=== PATIENT | male | born 1975 | race Caucasian/White ===

== ENCOUNTER 2019-10-10 03:22 | Emergency (ER) | payer SELFPAY ==
--- NOTE | ~2019-10-10 | XR_ITS ---
EXAMINATION: XR chest 1V portable DATE: 10/10/2019 03:49 INDICATION: Shortness of breath TECHNIQUE: frontal view of the chest was obtained. COMPARISON: Chest radiograph dated 03/11/2018 FINDINGS: Chronic elevation of the right hemidiaphragm. No focal airspace opacities, pulmonary edema, pleural e ffusion or pneumothorax. The cardiomediastinal silhouette is normal. Visualized bones and soft tissue s are unremarkable. IMPRESSION: 1. Chronic elevation of the right hemidiaphragm. Reviewed, dictated and finalized at location A.
--- NOTE | ~2019-10-10 | CT_ITS ---
EXAMINATION: CT soft tissue neck w con DATE: 10/10/2019 04:58 INDICATION: Sore throat. Difficulty breathing. TECHNIQUE: Computed tomography (CT) of the neck was performed with 75 mL Omnipaque-350 intravenous co ntrast. The dose-length product was 643.39 mGy-cm. Automated exposure control and iterative reconstru ction technique were employed. COMPARISON: No prior studies for comparison. FINDINGS: No evidence for tonsillar or peritonsillar abscess. The salivary glands are unremarkable. N o evidence for epiglottitis. No discrete abscess. No significant abnormality of the neck vasculature. Paranasal sinuses are unremarkable. There is diffuse mild mucosal thickening of the pharynx, suspici ous for pharyngitis. Lung apices are unremarkable. IMPRESSION: 1. Diffuse mild mucosal thickening of the pharynx, suspicious for pharyngitis. Reviewed, dictated and finalized at location A.
[2019-10-10 03:25] VITALS: BP 135/92; PULSE 81; RESP 16; TEMP 36.6; O2SAT 97
--- NOTE | 2019-10-10 03:39 | ED.SOB ---
HPI - SOB/Dyspnea General Chief Complaint: Shortness of Breath/Dyspnea Stated Complaint: feeling like throat closing Time Seen by Provider: 10/10/19 03:23 Source: patient Mode of arrival: EMS Limitations: no limitations History of Present Illness HPI Narrative: This patient is a 44 yo male who presents for evaluation of sensation of throat closing. Patients states just prior to calling EMS he woke up feeling like his throat was closing. He developed burning pain to his throat and he has pain with swallowing. He denies any tongue or lip swelling. He states he is short of breath. He took a dose of xanax prior to EMS arrival for possible panix attack as the cause of his symptoms. He denies fever, chills, cough. Timing: constant Exacerbating factors: nothing Relieving factors: nothing Known history of: other (anxiety) Related Data Home Medications Medication Instructions Recorded Confirmed citalopram mg 10/10/19 lithium carbonate 300 mg PO BID 10/10/19 naltrexone mg 10/10/19 quetiapine 50 mg PO HS 10/10/19 Allergies Allergy/AdvReac Type Severity Reaction Status Date / Time No Known Allergies Allergy Verified 10/10/19 03:59 Review of Systems Review of Systems: All systems reviewed & are unremarkable except as noted in HPI and below Constitutional: Constitutional: Denies chills, Denies fever(s) and Denies weakness ENT: Reports dysphagia, Reports hoarseness, Denies lip swelling and Reports sore throat Cardiovascular: Cardiovascular: Denies chest pain Respiratory: Respiratory: Denies cough and Reports dyspnea Gastrointestinal: Gastrointestinal: Denies abdominal pain, Denies diarrhea, Denies nausea and Denies vomiting Integumentary/Breasts: Skin/Breast: Denies pruritus, Denies erythema and Denies rash Psychiatric: Psychiatric: Reports anxiety [facility] Past Medical History Medical History (Updated 10/10/19 @ 05:34 by Cally Caraballo MD) Anxiety Hypertension Social History Social History (Updated 10/10/19 @ 03:43 by Cally Caraballo MD) Smokeless tobacco user: chewing tobacco Substance use: never Gender identity (if verbalized by the patient): Male Exam Const: General: no acute distress and alert Orientation/consciousness: patient oriented x3 HENMT: Head: normocephalic and atraumatic Ears: hearing grossly normal bilaterally, external ears normal and TM's normal bilaterally General nose exam: Normal external nose present Face and sinus: normal facial exam Mouth: Yes lip normal, Yes tongue normal, Yes moist mucous membranes and No trismus Throat: uvula midline and posterior oropharynx abnormal erythema Eyes: Pupils: Equal, round and reactive pupils present EOM: EOMs intact bilaterally Chest: Chest palpation & inspection: normal inspection of the chest Resp: Effort & Inspection: normal respiratory effort Auscultation: clear to auscultation bilaterally Cardio: Rate: regular rate Rhythm: regular rhythm Heart sounds: no murmurs GI: GI Palp: Yes Soft to palpation, No Tenderness to palpation present (GI), No Guarding due to palpation present (GI) and No Rigid due to palpation Course Reevaluation(s) Reevaluation #1: Patient states he feels better. His throat pain is better and he sensation of throat swelling improving. I discussed wbc 24K and he states he has CLL but he does not think it has been that high. I discussed I will order CT neck Date: 10/10/19 Time: 04:31 Reevaluation #2: Patient is resting comfortably. He has no difficulty breathing. I have discussed plan to treat with antibiotics for pharyngitis. no swelling or edema noted on oropharynx but it is extremely red on exam, no exudates Date: 10/10/19 Time: 05:28 Vital Signs Vital signs: Vital Signs Temperature 97.8 F 10/10/19 03:25 Pulse Rate 81 10/10/19 03:25 Respiratory Rate 16 10/10/19 03:25 Blood Pressure 135/92 H 10/10/19 03:25 Pulse Oximetry 97 10/10/19 03:25 Temperature 97.8 F
[2019-10-10 03:45] LABS: Basophils Absolute Auto 0.2 K/mm3 (0.0-0.1); Basophils Percent Auto 0.8 % (0.2-1.2); Eosinophils Absolute Auto 0.8 K/mm3 (0-0.3); Eosinophils Percent Auto 3.2 % (0-4.4); Hematocrit 49.7 % (42.0-52.0); Hemoglobin 16.4 g/dL (14.0-18.0); Immature Granulocyte Absolute 0.11 K/mm3 (0.00-0.031); Immature Granulocyte Percent A 0.4 % (0-0.5); Lymphocytes Absolute Auto 15.43 K/mm3 (0.9-3.2); Lymphocytes Percent Auto 61.9 % (18.3-44.2); Mean Corpuscular Hemoglobin 29.9 pg (26-34); Mean Corpuscular Volume 90.7 fl (80-100); Mean Platelet Volume 10.4 fl (7.4-10.4); Monocytes Absolute Auto 1.6 K/mm3 (0.1-0.6); Monocytes Percent Auto 6.4 % (2.6-8.5); Neutrophils Absolute Auto 6.8 K/mm3 (1.3-6.7); Neutrophils Percent Auto 27.3 % (45.5-73.1); Platelet Count Result 256 k/mm3 (150-375); Red Blood Count 5.48 M/mm3 (4.6-6.20); Red Cell Distribution Width 13.3 % (11.5-14.5); White Blood Count 24.9 K/mm3 (4.5-10.0)
[2019-10-10] MEDS: methylPREDNISolone SOD SUCC 125 MG VIAL IV PUSH (03:47)
[2019-10-10] MEDS: KETOROLAC 30 MG/ML VIAL (*BKC) IV PUSH (03:47)
[2019-10-10 04:00] VITALS: BP 120/85; PULSE 63; RESP 16; O2SAT 96
[2019-10-10 04:24] LABS: Alanine Aminotransferase 49 U/L (4-50); Albumin Level 4.2 g/dL (3.5-5.1); Alkaline Phosphatase 117 U/L (38-126); Aspartate Amino Transferase 37 U/L (17-59); Bilirubin,Total 0.4 mg/dL (0.2-1.3); Blood Urea Nitrogen 12 mg/dL (9-20); Calcium 8.8 mg/dL (8.4-10.2); Carbon Dioxide 23 mmol/L (22-30); Chloride 107 mmol/L (98-107); Estimated CRCL calculation 119 ml/min; Estimated Glomerular Filt Rate > 60; Glucose 136 mg/dL (75-110); Potassium 3.7 mmol/L (3.4-5.0); Sodium 137 mmol/L (137-145)
[2019-10-10 04:30] VITALS: BP 126/86; PULSE 78; RESP 17; O2SAT 95
[2019-10-10 04:47] LABS: Lithium 0.4 mmol/L (0.6-1.2)
[2019-10-10 04:55] LABS: Monoscreen Negative (Negative); Negative Monotest Control Negative (Negative); Positive Monotest Control Positive (Positive)
[2019-10-10 05:00] VITALS: BP 122/74; PULSE 78; RESP 16; O2SAT 94
[2019-10-10 05:57] VITALS: BP 121/80; PULSE 76; RESP 14; O2SAT 95
[2019-10-10] MEDS: cefTRIAXone 250 MG VIAL IM (05:58)
== END 2019-10-10 06:32 | disposition home or self-care (01) ==
PROVIDERS: Emergency Provider General Practice; PCP Emergency Medicine
DX: J02.9 Acute pharyngitis, unspecified (principal); C91.10 Chronic lymphocytic leukemia of B-cell type not having achieved remission; I10 Essential (primary) hypertension; F41.9 Anxiety disorder, unspecified; F17.220 Nicotine dependence, chewing tobacco, uncomplicated
CPT/HCPCS: 36415; 70491; 71045; 80053; 80178; 85025; 86308; 87081; 87880; 96372; 96374; 96375; 99284; J0696; J1200; J1885; J2930; Q9967

== ENCOUNTER 2021-09-20 07:34 | Outpatient (CLI) | payer BC, SELFPAY ==
--- NOTE | 2021-09-22 11:28 | WPDHOMESLEEP ---
Sleep Study - Home Unattended Date of Study: 09/20/21 Ordering Provider: UNKNOWN,DOCTOR Interpreting Provider: Essie Mina, DO Home Sleep Study Type: Apnea Link Air Height: 1.78 m Weight: 106.594 kg Body Mass Index: 33.7 Neck Circumference (inches): 17.5 [place]: 14 Reason for Sleep Study Unrefreshing sleep and daytime hypersomnnia. Previous diagnosis of JULIANA. Sleep History The patient is a 46-year-old male with anxiety, hypertension, depression, bipolar disorder, PTSD, and hypothyroidism had a sleep study ordered by his primary care. The patient was previously diagnosed with sleep apnea in his early 30s and had a CPAP machine. He stopped after 6 months because he could not tolerate CPAP. He rarely awakens from sleep short of breath. He occasionally awakens at night with heartburn, belching or cough. He occasionally snores loudly enough that others complain. He rarely has trouble sleeping when he has a cold. He occasionally wakes up gasping for air throughout the night. He occasionally has breathing problems at night observed by himself or others. He rarely sweats excessively at night. He rarely has heart palpitations or irregular heartbeats during the night. He frequently falls asleep during the day. He rarely falls asleep while driving. He denies sleep paralysis and cataplexy. He occasionally has trouble at work due to sleepiness. He rarely experiences vivid dreamlike scenes upon awakening or falling asleep. He rarely feels afraid of going to sleep. He rarely has nightmares. He occasionally remembers his dreams. He frequently has thoughts racing through his mind. He rarely feels sad or depressed. He constantly has anxiety. He rarely has muscular tension. He rarely notices parts of his body jerk. He rarely kicks during the night. He rarely has crawling and aching feelings in his legs. He rarely has leg pain during the night. He frequently grinds his teeth during sleep but rarely awakens with morning jaw pain. He is frequently bothered by pain during the day but rarely awakened by pain during the night. He occasionally wakes up feeling stiff in the morning. He frequently wakes up with sore achy muscles. He frequently wakes up with pain in the neck, spine and other joints. He goes to bed at 5:30 a.m. on weekdays and 10:00 p.m. on the weekends. It takes him less than an hour to fall asleep. He wakes up once throughout the night to use the restroom. He is able to fall back asleep within a few minutes. He wakes up at 2:00 p.m. on the weekdays and 9:00 a.m. on the weekends. He typically gets 8-9 hours of sleep per night. He will stay in bed for 10-15 minutes after waking up in the morning. He currently lives with his , stepdaughter and grandchild. the patient does not consume any caffeinated beverages within 2 hours of bedtime. He does engage in physical exercise before bedtime. He will watch television before falling asleep. He will take naps in the afternoon or the evening but they are not refreshing. He will drink 1 caffeinated beverage per day. He denies tobacco, alcohol and recreational drug use. [facility] Past Medical History Medical History Anxiety Bipolar disorder Hypertension Hypothyroidism PTSD (post-traumatic stress disorder) Social History Social History Smokeless tobacco user: chewing tobacco Substance use: never Gender identity (if verbalized by the patient): Male Medications Home Medications Medication Instructions Recorded Confirmed Type amoxicillin 500 mg PO Q12H #20 tablet 10/10/19 Rx citalopram mg 10/10/19 History lithium carbonate 300 mg PO BID 10/10/19 History naltrexone mg 10/10/19 History naproxen 500 mg PO BID PRN #20 tablet 10/10/19 Rx quetiapine 50 mg PO HS 10/10/19 History Sleep Procedure This test was performed using 4 channel monitorin
[2021-09-22 11:40] VITALS: BMI 33.7
== END 2021-09-21 15:14 | disposition home or self-care (01) ==
LOC: ANHCSM 07:36
PROVIDERS: PCP Physician Assistant
DX: G47.33 Obstructive sleep apnea (adult) (pediatric) (principal)
CPT/HCPCS: 95806

== ENCOUNTER 2023-05-11 09:07 | Outpatient (CLI) | payer BC, SELFPAY ==
--- NOTE | 2023-05-13 14:33 | WPDSLEEPSTUD ---
Sleep Study Date of Study: 05/11/2023 Ordering Provider: Yaneth Saldana, DEANGELO Interpreting Physician: Helena Leach MD Sleep Study Type: Polysomnogram Height: 1.78 m Weight: 106.594 kg Body Mass Index: 33.7 Neck Circumference (inches): 19 [place]: 6 Reason for Sleep Study Tired all the time Sleep History Abraham Jimenez is 47-year-old man with a diagnosis of moderate obstructive sleep apnea from testing in his 30s as well as a home sleep test 09/20/2021. He has tried CPAP without success. He returns to have a basic sleep study for [employer] evaluation, hypoglossal nerve stimulator. He has medical co-morbidities including anxiety, hypertension, depression, bipolar disorder, PTSD, and hypothyroidism. He rarely awakens from sleep short of breath. He rarely awakens at night with heartburn, belching or cough. He occasionally snores, rarely loudly enough that others complain. He never has trouble sleeping when he has a cold. He never wakes up gasping for air throughout the night. He rarely has breathing problems at night observed by himself or others. He rarely sweats excessively at night. He never has heart palpitations or irregular heartbeats during the night. He rarely falls asleep during the day. He never falls asleep while driving. He denies feeling paralyzed on waking or falling asleep, denies having muscle weakness with strong emotion, and rarely vivid dream like scenes on falling asleep or waking. He never has trouble at work due to sleepiness. He never feels afraid of going to sleep. He rarely has nightmares. He occasionally remembers his dreams. He frequently has thoughts racing through his mind. He occasionally feels sad or depressed. He frequently has anxiety. He rarely has muscular tension. He rarely notices parts of his body jerk. He rarely kicks during the night. He rarely has crawling and aching feelings in his legs. He rarely has leg pain during the night. He occasionally grinds his teeth during sleep but rarely awakens with morning jaw pain. He is rarely bothered by pain during the day, rarely awakened by pain during the night. He rarely wakes up feeling stiff in the morning. He rarely wakes up with sore achy muscles. He rarely wakes up with pain in the neck, spine and other joints. He goes to bed at 9:30 a.m. on weekdays and 8:00 p.m. on the weekends. He falls asleep within 15-20 minutes, waking 1-2 times at night to go to the bathroom. He is able to return to sleep within a few minutes. He wakes at 7:00 p.m. on weekdays, and 4:00 a.m. on weekends. He typically gets 8-9 hours of sleep per night. He takes naps in the afternoon or the evening, and a short nap lasting 10-15 minutes can be refreshing. Habits: Tobacco: never smoker Caffeine: 1 serving per day No alcohol or recreational substances. [facility] Past Medical History Medical History (Updated 05/13/23 @ 14:57 by Helena Leach MD) Anxiety Bipolar disorder Hypertension Hypothyroidism JULIANA (obstructive sleep apnea) PTSD (post-traumatic stress disorder) Social History Social History Smokeless tobacco user: chewing tobacco Substance use: never Gender identity (if verbalized by the patient): Male Medications Home Medications Medication Instructions Recorded Confirmed Type amoxicillin 500 mg tablet 500 mg PO Q12H #20 tabs 10/10/19 Rx citalopram 20 mg tablet mg 10/10/19 History lithium carbonate 300 mg capsule 300 mg PO BID 10/10/19 History naltrexone 50 mg tablet mg 10/10/19 History naproxen 500 mg tablet 500 mg PO BID PRN pain #20 tabs 10/10/19 Rx quetiapine 50 mg tablet 50 mg PO HS 10/10/19 History Sleep Procedure A full night polysomnogram using the [employer] multi-channel system recorded the standard physiologic parameters including EEG, EOG, submentalis EMG, anterior tibialis EMG, EKG, body position, nasal and oral airflow using nasal pressure sensor and t
[2023-05-15 09:28] VITALS: BMI 33.7
== END 2023-05-11 15:00 | disposition home or self-care (01) ==
PROVIDERS: PCP Physician Assistant; Visit Provider Physician Assistant
DX: G47.33 Obstructive sleep apnea (adult) (pediatric) (principal)
CPT/HCPCS: 95810

== ENCOUNTER 2023-07-21 20:14 | Emergency (ER) | payer BC, SELFPAY ==
--- NOTE | ~2023-07-21 | XR_ITS ---
EXAMINATION: XR chest 2V Exam Date/Time: 07/21/2023 20:50 WIRE THREADER HISTORY: CP Comparison: 10/10/2019. RESULT: Lines, tubes, and devices: None. Lungs and pleura: Low volumes with crowding, chronic right hemidiaphragm elevation, otherwise clear. Cardiomediastinal silhouette: Stable. Other: No acute osseous or upper abdominal finding. IMPRESSION: No acute cardiopulmonary process. Reviewed, dictated and finalized at location K. THREADER
--- NOTE | 2023-07-21 20:15 | ECG_ITS ---
Measurements Intervals [place] Rate: 84 P: 23 FL: 173 QRS: -25 QRSD: 100 T: 30 QT: 377 QTc: 447 Interpretive Statements SINUS RHYTHM POOR R-WAVE PROGRESSION BORDERLINE ECG NO PREVIOUS ECG AVAILABLE FOR COMPARISON Electronically Signed On 07-22-2023 8:19:40 C[employer]ONUT JELLY ROLLER by Juvencio Travis M.D.
[2023-07-21 20:24] VITALS: BP 142/92; PULSE 97; RESP 18; TEMP 35.9; O2SAT 94
[2023-07-21 20:42] LABS: Hematocrit 49.8 % (42.0-52.0); Hemoglobin 16.3 g/dL (14.0-18.0); Mean Corpuscular HGB Conc 32.7 g/dl (32-36); Mean Corpuscular Volume 88.6 fl (80-100); Mean Platelet Volume 10.3 fl (7.4-10.4); Platelet Count Result 265 k/mm3 (150-375); Red Blood Count 5.62 M/mm3 (4.6-6.20); Red Cell Distribution Width 13.2 % (11.5-14.5); White Blood Count 31.4 K/mm3 (4.5-10.0)
[2023-07-21 20:52] LABS: Alanine Aminotransferase 76 U/L (6-50); Albumin Level 4.5 g/dL (3.5-5.1); Alkaline Phosphatase 85 U/L (38-126); Anion Gap 7 mmol/L (8-16); Aspartate Amino Transferase 38 U/L (17-59); Bilirubin,Total 0.8 mg/dL (0.2-1.3); Blood Urea Nitrogen 18 mg/dL (9-20); Calcium 9.5 mg/dL (8.4-10.2); Carbon Dioxide 26 mmol/L (22-30); Chloride 107 mmol/L (98-107); Estimated CRCL calculation 122 ml/min; Estimated Glomerular Filt Rate > 60; Glucose 114 mg/dL (65-110); Lipase 102 U/L (23-300); Potassium 3.8 mmol/L (3.4-5.0); Sodium 140 mmol/L (137-145)
[2023-07-21 20:53] LABS: Partial Thromboplastin Time 26.8 SECONDS (22.3-36.8); Prothrombin Time 13.1 Seconds (11.1-14.7)
[2023-07-21 21:03] LABS: Troponin I < 0.012 ng/mL (0.000-0.034)
[2023-07-21 21:05] LABS: Band Neutrophils Percent 3 % (0-6); Eosinophils Absolute Manual 0.31 K/mm3 (0.02-0.5); Eosinophils Percent Manual 1 % (0-4); Lymphocytes Absolute Manual 13.18 K/mm3 (1.1-4.5); Monocytes Absolute Manual 1.57 K/mm3 (0.1-0.90); Monocytes Percent Manual 5 % (3-9); Neutrophils Absolute Manual 16.32 K/mm3 (1.3-6.7); Neutrophils Percent Manual 49 % (46-73); Platelet Estimate Adequate (Adequate); Total Cells Counted 100
[2023-07-21 21:06] LABS: Atypical Lymphocytes Present; Schistocytes None Seen (NORMAL); Smudge Cells MANY
--- NOTE | 2023-07-21 23:55 | ECG_ITS ---
Measurements Intervals [place] Rate: 82 P: 26 NV: 179 QRS: -34 QRSD: 105 T: 17 QT: 367 QTc: 429 Interpretive Statements SINUS RHYTHM MARKED LEFT AXIS DEVIATION [QRS AXIS < -30] POOR R-WAVE PROGRESSION BORDERLINE ECG COMPARED TO ECG 07/21/2023 20:28:16 NO DIFFERENCE Electronically Signed On 07-22-2023 8:27:33 EDGER LINER by Juvencio Travis M.D.
[2023-07-22] VITALS (14 sets, daily range): BP systolic 140–142; BP diastolic 81–96; PULSE 70–96; RESP 15–16; TEMP 36.3; O2SAT 94–99
[2023-07-22 00:17] LABS: Troponin I < 0.012 ng/mL (0.000-0.034)
[2023-07-22] MEDS: SODIUM CHLORIDE 0.9% IV 1,000 ML 999 ML IV CONT (01:25)
[2023-07-22] MEDS: MECLIZINE HCL 25 MG TABLET PO (01:26)
--- NOTE | 2023-07-22 01:54 | ED.CHESTPAIN ---
HPI - Chest Pain General Chief Complaint: Chest Pain Stated Complaint: chest pain Time Seen by Provider: 07/22/23 00:57 History of Present Illness HPI narrative: 47-year-old male with history of hypertension, hypothyroidism, JULIANA, PTSD, CLL and bipolar disorder reports via EMS from home for chest pain that began at 730 this evening while he was lying on the couch. Patient states he began having left-sided chest pain that he described as dull aching with associated diaphoresis. States he stood up and felt dizzy and called EMS. States his chest pain lasted for approximately 45 minutes and resolved spontaneously, has not come back. He denies aggravating or alleviating factors, radiating pain. States he had dizziness like this a few years ago and was told it was due to ?his equilibrium being off?. States he has dizziness when he moves his head quickly. Denies palpitations, loss of consciousness, shortness of breath, nausea or vomiting, vision changes or focal numbness or weakness, lower extremity edema, recent surgeries or hospitalizations, cough hemoptysis. No prior cardiac history. Patient states he has been having night sweats frequently the past few weeks which he is attributing to his CLL. Patient also states sometimes his anxiety causes chest pain. Denies personal or family cardiac history. He has never smoked. Related Data Home Medications Medication Instructions Recorded Confirmed citalopram 20 mg tablet mg 10/10/19 lithium carbonate 300 mg capsule 300 mg PO BID 10/10/19 naltrexone 50 mg tablet mg 10/10/19 quetiapine 50 mg tablet 50 mg PO HS 10/10/19 Allergies Allergy/AdvReac Type Severity Reaction Status Date / Time No Known Allergies Allergy Verified 10/10/19 03:59 Review of Systems Review of Systems: CONSTITUTIONAL: Denies fever, chills, or sweats. EYES: Denies visual changes, redness, or discharge. ENT: Denies rhinorrhea, congestion, sore throat, or otalgia. CARDIOVASCULAR: See HPI RESPIRATORY: Denies cough or dyspnea. GASTROINTESTINAL: Denies abdominal pain, nausea, vomiting, or diarrhea. GENITOURINARY: Denies dysuria or hematuria. SKIN: Denies rash or itching. MUSCULOSKELETAL: Denies back pain, joint pain, or myalgia. NEUROLOGIC: See HPI PSYCHIATRIC: Denies anxiety or depression. [facility] Past Medical History Medical History Anxiety Bipolar disorder Hypertension Hypothyroidism JULIANA (obstructive sleep apnea) PTSD (post-traumatic stress disorder) Social History Social History Smokeless tobacco user: chewing tobacco Substance use: never Gender identity (if verbalized by the patient): Male Exam Narrative: GENERAL: Well-appearing, well-nourished, and in no acute distress. Patient resting comfortably in exam bed. He is pleasant and conversational. HEAD: Normocephalic, atraumatic. EYES: PERRLA and EOMI. ENT: Nares clear, no rhinorrhea or epistaxis. Mucous membranes moist. Bilateral TMs are oconnor nonbulging with normal canals. NECK: Supple. CHEST: Clear to auscultation. No respiratory distress. No tenderness to chest wall. HEART: Regular rate and rhythm. No murmur heard. Normal peripheral pulses. ABDOMEN: Soft, nontender, nondistended, normal active bowel sounds. EXTREMITIES: Normal range of motion. No edema. SKIN: Warm, dry, no rash. NEURO: No focal deficits. Alert and oriented x3. Cranial nerves 2-12 intact. Strength 5/5 in BUE and BLE. Sensation intact throughout. Normal [id number]. No pronator drift. Course Vital Signs Vital signs: Vital Signs Temperature 96.7 F L 07/21/23 20:24 Pulse Rate 97 07/21/23 20:24 Respiratory Rate 18 07/21/23 20:24 Blood Pressure 142/92 H 07/21/23 20:24 Pulse Oximetry 94 07/21/23 20:24 Oxygen Delivery Room Air 07/21/23 20:24 Temperature 96.7 F L 07/21/23 20:24 Pulse Rate 75 07/22/23 02:15 Respirat
[2023-07-22 02:56] LABS: Troponin I < 0.012 ng/mL (0.000-0.034)
== END 2023-07-22 03:19 | disposition home or self-care (01) ==
PROVIDERS: Emergency Provider Physician Assistant; PCP Physician Assistant
DX: R07.89 Other chest pain (principal); R42 Dizziness and giddiness; C91.10 Chronic lymphocytic leukemia of B-cell type not having achieved remission; I10 Essential (primary) hypertension; E03.9 Hypothyroidism, unspecified; G47.33 Obstructive sleep apnea (adult) (pediatric); F31.9 Bipolar disorder, unspecified; F43.10 Post-traumatic stress disorder, unspecified; F17.220 Nicotine dependence, chewing tobacco, uncomplicated; R94.31 Abnormal electrocardiogram [ECG] [EKG]
CPT/HCPCS: 36415; 71046; 80053; 83690; 84484; 85025; 85610; 85730; 93005; 96360; 99284; A9270; J7030

== ENCOUNTER 2024-07-24 08:09 | Outpatient (CLI) | payer BC, SELFPAY ==
--- NOTE | ~2024-07-24 | CT_ITS ---
Non-contrast CT scan of the Abdomen and Pelvis Clinical indication: Abdominal pain Technique: 2.5 mm axial scans were obtained through the abdomen and pelvis without intravenous or or al contrast. Dose reduction technique was used on this scan by utilizing automated exposure control a nd iterative reconstruction technique. The dose-length product (DLP) was 1168.16 mGy-cm. Findings: Images through the lung bases reveal no abnormalities. There are punctate bilateral nonobstructing renal stones. No ureteral stone or hydronephrosis on eith er side. The liver, spleen, pancreas, and adrenals appear normal. Gallbladder absent. There is no aortic aneur ysm. There is no evidence of bowel obstruction. Images through the pelvis were performed. There is no evidence of ascites or lymphadenopathy. Urinary bladder unremarkable. No pelvic mass seen. No ascites. Impression: Punctate bilateral nonobstructing renal stones. No acute abnormality evident. Reviewed, dictated and finalized at [facility]. T ROLLER WINDER Impression: Punctate bilateral nonobstructing renal stones. No acute abnormality evident.
== END 2024-07-24 08:10 | disposition home or self-care (01) ==
PROVIDERS: PCP Physician Assistant; Visit Provider Physician Assistant
DX: N20.0 Calculus of kidney (principal)
CPT/HCPCS: 74176

== ENCOUNTER 2024-08-31 07:26 | Outpatient (CLI) | payer BC, SELFPAY ==
--- NOTE | ~2024-08-31 | XR_ITS ---
Thoracic spine: Clinical Indication: Back pain AP and lateral views were performed. No fracture is seen. There is normal alignment of the vertebrae. The intervertebral disc spaces appe ar normal. Paravertebral soft tissues appear normal. Impression: No significant abnormalities noted. Reviewed, dictated and finalized at [facility]. Impression: No significant abnormalities noted.
--- NOTE | ~2024-08-31 | XR_ITS ---
Lumbosacral Spine: AP and lateral views Clinical History: Pain Findings: The normal lordotic curve is maintained. The vertebral bodies and posterior elements are i ntact. The intervertebral disc spaces are preserved. There are mild facet joint degenerative changes . The sacroiliac joints are normally outlined. Impression: Mild facet arthropathy. Reviewed, dictated and finalized at location . Impression: Mild facet arthropathy.
== END 2024-08-31 07:27 | disposition home or self-care (01) ==
PROVIDERS: PCP Physician Assistant; Visit Provider Physician Assistant
DX: M54.50 Low back pain, unspecified (principal); M54.6 Pain in thoracic spine
CPT/HCPCS: 72070; 72100